=== PATIENT | female | born 1985 | race Caucasian/White ===

== ENCOUNTER 2022-06-21 10:39 | Outpatient (CLI) | payer OTHER, SELFPAY ==
[2022-06-21 12:45] LABS: Cholesterol* 224 mg/dL (90-199); HDL Cholesterol* 61 mg/dL (>=50); LDL Cholesterol Calculated 149 mg/dL (<100); Triglycerides* 68 mg/dL (40-149)
[2022-06-21 14:16] LABS: Chlamydia DNA Amplified* NOT DETECTED (No Detected); GC DNA Amplified* NOT DETECTED (No Detected)
[2022-06-21 15:13] LABS: Glucose* 101 mg/dL (60-115)
== END 2022-06-21 10:40 | disposition home or self-care (01) ==
PROVIDERS: Visit Provider Physician Assistant
DX: Z01.419 Encounter for gynecological examination (general) (routine) without abnormal findings (principal); Z12.4 Encounter for screening for malignant neoplasm of cervix; Z11.3 Encounter for screening for infections with a predominantly sexual mode of transmission; Z13.6 Encounter for screening for cardiovascular disorders; Z13.1 Encounter for screening for diabetes mellitus
CPT/HCPCS: 80061; 82947; 87491; 87591; 87624

== ENCOUNTER 2023-08-06 08:25 | Outpatient (CLI) | payer OTHER, SELFPAY | END 2023-08-06 08:26 | disposition home or self-care (01) | PROVIDERS: Visit Provider Physician Assistant | DX: Z13.6 Encounter for screening for cardiovascular disorders (principal); Z13.1 Encounter for screening for diabetes mellitus | CPT/HCPCS: 80061; 82947 ==

== ENCOUNTER 2024-11-19 14:21 | Emergency (ER) | payer OTHER, SELFPAY ==
[2024-11-19] VITALS (14 sets, daily range): BP systolic 116–144; BP diastolic 68–98; PULSE 89–118; RESP 16–22; TEMP 36.5; O2SAT 95–99; BMI 27.5
[2024-11-19 15:14] LABS: Lactate* 1.5 mmol/L (0.5-1.9)
[2024-11-19 15:18] LABS: Appearance Urine Clear (Clear); Bilirubin Urine Negative (Negative); Blood Urine Negative (Negative); Color Urine Dark yellow (Yellow); Glucose Urine Negative (Negative); Ketones Urine Trace (Negative); Leukocyte Esterase Urine Negative (Negative); Nitrite Urine Negative (Negative); Protein Urine Negative (Negative); Specific Gravity Urine >= 1.030 (1.000-1.030); Urobilinogen Urine 0.2 (0.2-1.0)
[2024-11-19 15:19] LABS: Basophils Percent Auto 0.2 % (0.0-3.0); Eosinophils Percent Auto 0.1 % (0.0-7.0); Hematocrit 40.9 % (33.0-51.0); Hemoglobin* 13.5 gm/dL (12.0-16.0); Immature Granulocytes Pct Auto 0.3 %; Lymphocytes Percent Auto 7.9 % (20-44); Mean Corpuscular HGB Conc 33 gm/dL (32-36); Mean Corpuscular Hemoglobin 28 pg (26-34); Mean Corpuscular Volume 85 fL (80-100); Monocytes Percent Auto 4.4 % (0.0-11.0); Neutrophils Percent Auto 87.1 % (42.0-72.0); Platelet Count* 273 K/uL (140-440); RDW Coefficient of Variation % 12.4 % (11.5-15.5); Red Blood Count 4.82 m/uL (4.00-5.20); White Blood Count* 11.94 K/uL (4.50-11.00)
[2024-11-19 15:26] LABS: RBC Urine 0-2 (0-2); Squamous Epithelial Cell Urine Few (None-Few); WBC Urine 0-2 (0-5)
[2024-11-19] MEDS: 0.9 % SODIUM CHLORIDE 1000 ml 1,000 ML IV (15:34)
[2024-11-19 15:41] LABS: Albumin* 4.6 g/dL (3.3-5.0)
[2024-11-19 15:42] LABS: Slide Review Reflex No
[2024-11-19 15:44] LABS: Alanine Aminotransferase* 24 U/L (4-35); Alkaline Phosphatase* 65 U/L (40-150); Aspartate Amino Transferase* 22 U/L (12-35); Bilirubin Direct* 0.1 mg/dL (0.0-0.5); Bilirubin Total* 0.6 mg/dL (0.1-1.5); Magnesium* 2.1 mg/dL (1.5-2.6); Total Protein* 7.4 g/dL (6.0-8.3)
--- NOTE | 2024-11-19 15:44 | ED.GENADULT ---
HPI - General Adult General Chief complaint: Arrhythmia/Palpitations Stated complaint: rapid heart rate, light headed Time Seen by Provider: 11/19/24 14:45 Source: patient Mode of arrival: ambulatory Limitations: no limitations History of Present Illness HPI narrative: 39-year-old female presenting today of palpitations. Patient states that she was at work when she felt her heart beat fast. It made her feel slightly short of breath. She states this has never happened before. She tried to lay down and take deep breaths but the sensation continued. She could see on her watch that her pulse was in the 120s to 130s. She states that her pulse is generally in the 80s. Patient does drink coffee daily and drinks 2 cups of coffee this morning she did also have an energy drink at lunch, she has had this drink before and is not anything new. She denies recent travel. She has not been coughing. She denies fevers and chills. She denies recent surgery. She denies . No vomiting. Patient does have a history of anxiety and has been going through a lot of stress at home. She feels that this is a completely different sensation than she has ever felt. Related Data Home Medications ?Medication ?Instructions ?Recorded ?Confirmed No Known Home Medications 03/12/24 03/12/24 Allergies Allergy/AdvReac Type Severity Reaction Status Date / Time No Known Allergies Allergy Verified 03/12/24 10:39 Review of Systems Status of ROS: Reports: 10 or more systems reviewed and unremarkable except as noted in History and below [facility] Medical History Forceps delivery ?O75.9 - Complication of labor and delivery, unspecified (ICD-10) Surgical History History of ?Z98.891 - History of uterine scar from previous surgery (ICD-10) History of loop electrosurgical excision procedure (LEEP) of cervix ?Z98.890 - Other specified postprocedural states (ICD-10) Family History Paternal Grandfather Stroke Thyroid disease Diabetes Cancer Maternal Grandmother Cancer Mother High cholesterol Brother Alcohol dependence Social History Narrative: RN, 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 Single/ Nonsmoker Alcohol use: 3 per week What is your current living situation?: I presently have a place to live Problems where you live: no known problems In the past 12 months, utilities in danger of being shut off: no In past 12 months, lack of transportation kept you from medical appts, meetings, work, or getting things needed for daily living: no In the past 12 mos, have been you worried that your food would run out before you had money to buy more?: never true In the past 12 mos, the food you bought just didn't last and you didn't have money to buy more?: never true Smoking Status: Former smoker How often do you have a drink containing alcohol: never AUDIT-C Alcohol total score: 0 Non-prescribed substance use: denies use How often does anyone, including family, friends and others, physically hurt you: never How often does anyone, including family, friends and others, insult or talk down to you: rarely How often does anyone, including family, friends and others, threaten you with harm: never How often does anyone, including family, friends and others, scream or curse at you: rarely Health Related Social Needs: Other personal risk factors, not elsewhere classified (Z91.89) Exam Narrative: Exam Narrative: Well-nourished well-developed patient in no acute distress. Alert and oriented. Answers questions appropriately. Mood and affect are appropriate. Thoughts are goal oriented and rational. No tangential or magical thinking noted. Patient speaks in full sentences without needing to catch her breath. HEENT: Normocephalic atraumatic. Pupils are equally round reactive to light. Extraocular muscles are intact. Conjunctivae are moist without any icterus noted. Moist mucous membranes. Neck is soft without thyromegaly. Cardiovascular: Tachycardic, S1-S2 present without murmurs. Lungs: Clear to auscultation bilaterally no wheezes rhonchi or rales are appreciated. Patient takes deep breaths without any discomfort. Abdomen: Soft and nontender nondistended with normal bowel sounds. Extremities: Bilateral lower extremities are without edema. Normal DP and PT pulses. Skin: Well perfused without any obvious rashes. Const: Vital Signs, click to edit/add: Vital Signs - 24 hr 11/19/24 14:27 11/19/24 15:14 11/19/24 15:25 Temperature 97.7 F Pulse Rate 97 Pulse Rate [Pulse Oximeter] 118 H Respiratory Rate 22 Blood Pressure 127/72 Blood Pressure [Ri ght Upper Arm] 144/98 H Pulse Oximetry 99 99 97 Oxygen Delivery Me thod Room Air 11/19/24 15:30 11/19/24 15:45 11/19/24 16:00 Temperature Pulse Rate 96 89 98 Pulse Rate [Pulse Oximeter] Respiratory Rate Blood Pressure Blood Pressure [Ri ght Upper Arm] Pulse Oximetry 98 99 97 Oxygen Delivery Me thod 11/19/24 16:02 11/19/24 16:15 11/19/24 16:30 Temperature Pulse Rate 103 H 101 H 101 H Pulse Rate [Pulse Oximeter] Respiratory Rate Blood Pressure 116/69 Blood Pressure [Ri ght Upper Arm] Pulse Oximetry 99 99 97 Oxygen Delivery Me thod 11/19/24 16:45 11/19/24 17:00 11/19/24 17:05 Temperature Pulse Rate 104 H 101 H 105 H Pulse Rate [Pulse Oximeter] Respiratory Rate Blood Pressure Blood Pressure [Ri ght Upper Arm] Pulse Oximetry 95 96 97 Oxygen Delivery Me thod 11/19/24 17:15 Temperature Pulse Rate 96 Pulse Rate [Pulse Oximeter] Respiratory Rate 16 Blood Pressure Blood Pressure [Ri ght Upper Arm] Pulse Oximetry 97 Oxygen Delivery Me thod Course Course ED Course: Differential diagnosis for a tachycardia in a otherwise healthy 39-year-old female includes anxiety, sepsis, PE, UTI, electrolyte abnormalities, anemia, dehydration, NC. Lab work unremarkable including electrolytes, D-dimer, CBC, UA, troponin, lactate. EKG, read by me, shows sinus tachycardia with a pulse of 122. IV was established and patient received 1 L of NS. This did not really change her heart rate. She stated that at one point her HR went up to 120 and she felt a discomfort in the center of her chest. Pulse ranged from 95-125. Initial troponin was 0, repeat troponin was unchanged. I would expect to see some EKG changes in an acute coronary event given that patient has been symptomatic for approximately 5 hours. I did consult with cardiology, Dr. Umaña, who recommended a 48 hour holter and an outpt echo. Vital Signs Vital signs: Initial Vital Signs Temperature 97.7 F 11/19/24 14:27 Temperature Source Temporal Artery Scan 11/19/24 14:27 Pulse Rate 118 H 11/19/24 14:27 Respiratory Rate 22 11/19/24 14:27 Blood Pressure 144/98 H 11/19/24 14:27 Blood Pressure Mean 113 H 11/19/24 14:27 Blood Pressure Position Sitting 11/19/24 14:27 Pulse Oximetry 99 11/19/24 14:27 Oxygen Delivery Method Room Air 11/19/24 14:27 Vital Signs Temperature 97.7 F 11/19/24 14:27 Pulse Rate 118 H 11/19/24 14:27 Respiratory Rate 22 11/19/24 14:27 Blood Pressure 144/98 H 11/19/24 14:27 Pulse Oximetry 99 11/19/24 14:27 Oxygen Delivery Method Room Air 11/19/24 14:27 Temperature 97.7 F 11/19/24 14:27 Pulse Rate 96 11/19/24 17:15 Respiratory Rate 16 11/19/24 17:15 Blood Pressure 116/69 11/19/24 16:02 Pulse Oximetry 97 11/19/24 17:15 Oxygen Delivery Method Room Air 11/19/24 14:27 Medications Administered Medications: Discontinued Medications Generic Name Dose Route Start Last Admin Trade Name Freq PRN Reason Stop Dose Admin Sodium Chloride 1,000 mls @ 1,000 mls/hr 11/19/24 15:00 11/19/24 16:15 0.9 % Sodium Chloride 1000 Ml IV 11/19/24 15:59 Infused .Q1H VIVIANE Infusion Medical Decision Making [facility] Narrative Medical decision making narrative: 39-year-old female with sinus tachycardia of unclear etiology. Unfortunately, we do not have 48 hour Holter is available anymore only the 2 week ZIO patch as which she does not need. For therefore, patient will follow up with her primary care provider to discuss a 48 hour Holter and an outpatient echo. She will return to the ER if she does not feel well or feels her heart racing again. Lab Data Lab results reviewed: Yes I reviewed the patient's lab results Labs: Lab Results 11/19/24 11/19/24 11/19/24 Range/Units 15:05 15:10 17:08 WBC 11.94 H (4.50-11.00) K/uL RBC 4.82 (4.00-5.20) m/uL Hgb 13.5 (12.0-16.0) gm/dL Hct 40.9 (33.0-51.0) % MCV 85 (80-100) fL MCH 28 (26-34) pg MCHC 33 (32-36) gm/dL RDW Coeff of Jesus 12.4 (11.5-15.5) % Plt Count 273 (140-440) K/uL Neut % (Auto) 87.1 H (42.0-72.0) % Lymph % (Auto) 7.9 L (20-44) % [place] % (Auto) 4.4 (0.0-11.0) % Eos % (Auto) 0.1 (0.0-7.0) % Baso % (Auto) 0.2 (0.0-3.0) % Neut # (Auto) 10.40 H (1.7-7.0) K/uL Lymph # (Auto) 0.90 (0.90-2.90) K/uL [place] # (Auto) 0.50 (0.00-0.90) K/UL Eos # (Auto) 0.00 (0.00-0.50) K/uL Baso # (Auto) 0.00 (0.00-0.30) K/uL Abs Immat Gran (auto) 0.00 (0.00-0.30) K/uL Imm/Tot Granulo (auto) 0.3 % D-Dimer Quant (PE/DVT) 0.19 (0.00-0.50) ug/ml Sodium 137 (135-149) mmol/L Potassium 3.3 L (3.6-5.1) mmol/L Chloride 105 (96-114) mmol/L Carbon Dioxide 23 (20-32) mmol/L Anion Gap 9 (7-15) mEq/L BUN 13 (5-24) mg/dL Creatinine 0.7 (0.5-1.5) mg/dL Estimated Creat Clear 94.10 Estimated GFR 113 ml/min Glucose 154 H (60-115) mg/dL Lactate 1.5 (0.5-1.9) mmol/L Calcium 9.0 (8.4-10.6) mg/dL Magnesium 2.1 (1.5-2.6) mg/dL Total Bilirubin 0.6 (0.1-1.5) mg/dL Direct Bilirubin 0.1 (0.0-0.5) mg/dL AST 22 (12-35) U/L ALT 24 (4-35) U/L Alkaline Phosphatase 65 (40-150) U/L Troponin I < 0.01 L (0.01-0.04) ng/mL Total Protein 7.4 (6.0-8.3) g/dL Albumin 4.6 (3.3-5.0) g/dL Urine Color Dark yellow (Yellow) Urine Appearance Clear (Clear) Urine pH 6.0 (5.0-8.5) Ur Specific [place] >= 1.030 (1.000-1.030) Urine Protein Negative (Negative) Urine Glucose (UA) Negative (Negative) Urine Ketones Trace A (Negative) Urine Blood Negative (Negative) Urine Nitrite Negative (Negative) Urine Bilirubin Negative (Negative) Urine Urobilinogen 0.2 (0.2-1.0) Ur Leukocyte Esterase Negative (Negative) Urine RBC 0-2 (0-2) Urine WBC 0-2 (0-5) Ur Squamous Epith Cells Few (None-Few) Urine Bacteria None (None) POC Troponin I 0.00 L (0.01-0.04) ng/ml ECG Data Attestation: I personally reviewed and interpreted this ECG as follows: Discharge Plan Discharge Clinical Impression: Sinus tachycardia Patient Disposition: Home, Self-Care Condition: Stable Additional Instructions: Recommend eliminating caffeine use at this time. Follow-up with your primary care provider this week or next week to discuss getting a 48 hour Holter monitor and getting outpatient echocardiogram scheduled. If at any point in time you feel short of breath, lightheaded or develops chest pain, return to the emergency department. Prescriptions: No Action No Known Home Medications Follow Up/Referrals: Jazmine Masters PA-C [Primary Care Provider] - Stand Alone Forms: [facility] Info Instructions
[2024-11-19 15:57] LABS: Troponin I* < 0.01 ng/mL (0.01-0.04)
[2024-11-19 15:58] LABS: Chloride* 105 mmol/L (96-114); Potassium* 3.3 mmol/L (3.6-5.1); Sodium* 137 mmol/L (135-149)
[2024-11-19 16:01] LABS: Anion Gap 9 mEq/L (7-15); Blood Urea Nitrogen* 13 mg/dL (5-24); Carbon Dioxide* 23 mmol/L (20-32); Creatinine* 0.7 mg/dL (0.5-1.5); Estimated Glomerular Filt Rate 113 ml/min; Glucose* 154 mg/dL (60-115)
[2024-11-19 16:22] LABS: D Dimer Quantitative* 0.19 ug/ml (0.00-0.50)
[2024-11-20 05:38] LABS: Ur HCG Qualitative* Negative (Negative)
== END 2024-11-19 17:30 | disposition home or self-care (01) ==
PROVIDERS: Emergency Provider Family Medicine; PCP Physician Assistant
DX: R00.0 Tachycardia, unspecified (principal)
CPT/HCPCS: 36415; 80048; 80076; 81001; 81025; 83605; 83735; 84443; 84484; 85025; 85379; 93005; 94761; 99284; J7030

== ENCOUNTER 2024-12-11 09:03 | Outpatient (CLI) | payer OTHER, SELFPAY | END 2024-12-11 09:04 | disposition home or self-care (01) | LOC: NFLDREF 12-16 00:01 | PROVIDERS: PCP Internal Medicine; Visit Provider Physician Assistant | DX: Z13.6 Encounter for screening for cardiovascular disorders (principal); Z13.1 Encounter for screening for diabetes mellitus | CPT/HCPCS: 80061; 82947 ==

== ENCOUNTER 2025-02-22 11:17 | Outpatient (CLI) | payer OTHER, SELFPAY | END 2025-02-22 11:18 | disposition home or self-care (01) | PROVIDERS: PCP Internal Medicine; Visit Provider Physician Assistant Medical | DX: R10.13 Epigastric pain (principal); Z11.4 Encounter for screening for human immunodeficiency virus [HIV]; Z11.59 Encounter for screening for other viral diseases | CPT/HCPCS: 80053; 83690; 86703; 86803 ==

== ENCOUNTER 2025-03-02 09:04 | Outpatient (CLI) | payer OTHER, SELFPAY ==
--- NOTE | 2025-03-02 09:15 | CRLHL7_ITS ---
For Patients: As a result of the Century Cures Act, medical imaging exams and procedure reports are released immediately into your electronic medical record. You may view this report before your referring provider. If you have questions, please contact your health care provider. INDICATION: Epigastric pain COMPARISON: none TECHNIQUE: Real time sebastain scale imaging and color Doppler analysis was performed of the right upper quadrant. FINDINGS: The patient`s liver is of normal size and has uniform echogenicity. There is a normal appearance of the hepatic IVC and proximal abdominal aorta. There is no evidence of ascites. The gallbladder is of normal size and there is no evidence of intraluminal stones or sludge. The gallbladder wall measures 3 mm in thickness. The common bile duct is of normal size and measures 2 mm in diameter at the level of the madai hepatis. The pancreas appears normal. There is no evidence of a stone or hydronephrosis within the right kidney. The right kidney measures 11.8 cm in length. IMPRESSION: Normal right upper quadrant ultrasound. Dictated by Yoav Muhammad MD @ 03/02/2025 10:03:43 AM (Electronically Signed)
== END 2025-03-02 09:05 | disposition home or self-care (01) ==
LOC: US 09:04
PROVIDERS: PCP Physician Assistant Medical; Visit Provider Physician Assistant Medical
DX: R10.13 Epigastric pain (principal)
CPT/HCPCS: 76705